=== PATIENT | female | born 1955 | race Caucasian/White ===

== ENCOUNTER → 2019-01-05 | Outpatient (CLI) | payer OTHER ==
[~2019-01-05] MED LIST: CALC1CAP8 PO; CITA20TA6 PO; LOSA100T14 PO; OMEP20TA62 PO; OXYB5TAB7 PO; PRILOSEC PO; PROP80TA PO
[2019-01-05 11:34] LABS: BASOPHILS # (AUTO) 0.09 x10^3/uL (0-0.1); BASOPHILS % (AUTO) 1 % (0-1); EOSINOPHILS # (AUTO) 0.14 x10^3/uL (0-0.4); EOSINOPHILS % (AUTO) 2 % (1-7); LYMPHOCYTES # (AUTO) 2.94 x10^3/uL (1-3.4); LYMPHOCYTES % (AUTO) 32 % (22-44); MD NO; MEAN CORPUSCULAR HEMOGLOBIN 28.3 pg (27.0-34.8); MEAN CORPUSCULAR HGB CONC 33.7 g/dL (32.4-35.8); MEAN CORPUSCULAR VOLUME 84.1 fL (80-100); MEAN PLATELET VOLUME 8.4 fL (7.4-10.4); MONOCYTES # (AUTO) 0.64 x10^3/uL (0.2-0.8); MONOCYTES % (AUTO) 7 % (2-9); NEUTROPHILS # (AUTO) 5.44 x10^3/uL (1.8-6.8); NEUTROPHILS % (AUTO) 59 % (42-75); PLATELET COUNT 334 x10^3/uL (130-400); RED BLOOD COUNT 5.21 x10^6/uL (3.82-5.3); RED CELL DISTRIBUTION WIDTH 14.2 % (9.6-15.2)
[2019-01-05 11:35] LABS: ALBUMIN 3.7 g/dL (3.4-5.0); ANION GAP 6 mmol/L (5-15); CALCIUM 8.8 mg/dL (8.5-10.1); CHLORIDE 107 mmol/L (98-107)
[2019-01-05 11:39] LABS: ALANINE AMINOTRANSFERASE 23 U/L (12-78); ALKALINE PHOSPHATASE 81 U/L (45-117); BILIRUBIN,TOTAL 0.5 mg/dL (0.2-1.0); CREATININE 0.78 mg/dL (0.55-1.02); TOTAL PROTEIN 7.1 g/dL (6.4-8.2)
== END | disposition home or self-care (01) ==
LOC: STAR 10:10
PROVIDERS: ATTEND Surgery
DX: Z01.818 Encounter for other preprocedural examination (principal); I45.10 Unspecified right bundle-branch block
CPT/HCPCS: 36415; 71046; 80053; 85025; 93005

== ENCOUNTER 2019-01-12 09:38 | Inpatient (IN) | payer OTHER ==
[~2019-01-12] VITALS: Ht 167.6 cm; Wt 108.2 kg
[~2019-01-12 09:38] MED LIST changes: +BUPIVACAINE/PF 0.5% ONE
[2019-01-12] MEDS ORDERED: LACTATED RINGERS 1,000 ML IV SCH (10:04)
[2019-01-12] MEDS ORDERED: GABAPENTIN 300 MG CAPSULE PO ONE (10:30)
[2019-01-12] MEDS ORDERED: ACETAMINOPHEN 500 MG TABLET PO ONE (10:30)
[2019-01-12] MEDS ORDERED: MIDAZOLAM 1 MG/ML, 2ML ONE (11:12)
[2019-01-12] MEDS ORDERED: FENTANYL PF 250 MCG/5ML ONE (11:12)
[2019-01-12] MEDS ORDERED: CEFOTETAN 2 GM ONE (12:12)
[2019-01-12] MEDS ORDERED: DEXAMETHASONE 4 MG/ML, 1ML ONE (12:33)
[2019-01-12] MEDS ORDERED: PROMETHAZINE 25 MG/ML, 1ML IV PRN (13:00)
[2019-01-12] MEDS ORDERED: hydrALAzine 20 MG/ML, 1ML IV PRN ×2 (13:00→14:30)
[2019-01-12] MEDS ORDERED: FENTANYL PF 100 MCG/2ML IV PRN (13:00)
[2019-01-12] MEDS ORDERED: OXYcodone 5 MG/5 ML ORAL.SOL UDC PO PRN (13:00)
[2019-01-12] MEDS ORDERED: ONDANSETRON 2MG/ML, 2ML IV PRN (13:00)
[2019-01-12] MEDS ORDERED: LABETALOL 5MG/ML, 20ML IV PRN (13:00)
[2019-01-12] MEDS ORDERED: MEPERIDINE/PF 25MG/0.5ML IVPush PRN (13:00)
[2019-01-12] MEDS ORDERED: ONDANSETRON 2MG/ML, 2ML ONE (13:42)
[2019-01-12] MEDS ORDERED: NEOSTIGMINE 1 MG/ML, 10ML ONE (13:43)
[2019-01-12] MEDS ORDERED: GLYCOPYRROLATE 0.4 MG/2 ML, 2ML ONE (13:43)
[2019-01-12] MEDS ORDERED: PROPOFOL 10 MG/ML, 20ML ONE (13:43)
[2019-01-12] MEDS ORDERED: ROCURONIUM 10MG/ML,5ML ONE (13:43)
[2019-01-12] MEDS ORDERED: HYDROmorphone 2 MG/ML, 1ML ONE (14:21)
[2019-01-12] MEDS ORDERED: OXYcodone 5 MG/5 ML ORAL.SOL UDC ONE (14:21)
[2019-01-12] MEDS: HYDROmorphone 2 MG/ML, 1ML IVPush PRN ×4 (14:25→14:52)
[2019-01-12] MEDS ORDERED: DEXAMETHASONE 4 MG/ML, 1ML IVPush PRN (14:30)
[2019-01-12] MEDS ORDERED: DIPHENHYDRAMINE 25 MG CAPSULE PO PRN (14:30)
[2019-01-12] MEDS ORDERED: HYDROmorphone 1 MG/ML, 1ML INJ IVPush PRN (14:30)
[2019-01-12] MEDS: ENOXAPARIN 40 MG/0.4 ML SQ SCH (14:30)
[2019-01-12] MEDS ORDERED: SCOPOLAMINE PATCH, 1.5MG PATCH.TD72 TD PRN (14:30)
[2019-01-12] MEDS ORDERED: LORazepam 2 MG/ML, 1ML IVPush PRN (14:30)
[2019-01-12] MEDS ORDERED: ONDANSETRON 2MG/ML, 2ML IVPush PRN (14:30)
[2019-01-12] MEDS ORDERED: HALOPERIDOL 5 MG/ML IVPush PRN (14:30)
[2019-01-12] MEDS: ACETAMINOPHEN 100 ML IVPB SCH ×2 (14:30→22:04)
[2019-01-12] MEDS ORDERED: DIPHENHYDRAMINE 50 MG/ML, 1ML IVPush PRN (14:30)
[2019-01-12] MEDS ORDERED: EPHEDRINE 50 MG/ML, 1ML IM ONE (16:00)
[2019-01-12] MEDS ORDERED: EPHEDRINE 50 MG/ML, 1ML IVPush PRN (16:00)
[2019-01-12] MEDS ORDERED: EPHEDRINE 50 MG/ML, 1ML ONE (16:01)
[2019-01-12] MEDS ORDERED: D5%-0.45NACL+KCL 20MEQ 1,000 ML IV SCH (16:30)
[2019-01-12] MEDS: IBUPROFEN 800 MG TABLET PO SCH ×2 (17:37→20:33)
[2019-01-12 21:31] VITALS: BP 91/53
[2019-01-13 00:10] VITALS: BP 99/54
[2019-01-13] MEDS: ACETAMINOPHEN 100 ML IVPB SCH ×2 (02:21→07:58)
[2019-01-13 03:37] LABS: BASOPHILS # (AUTO) 0.04 x10^3/uL (0-0.1); BASOPHILS % (AUTO) 0 % (0-1); EOSINOPHILS % (AUTO) 0 % (1-7); LYMPHOCYTES # (AUTO) 1.24 x10^3/uL (1-3.4); LYMPHOCYTES % (AUTO) 10 % (22-44); MD NO; MEAN CORPUSCULAR HEMOGLOBIN 28.3 pg (27.0-34.8); MEAN CORPUSCULAR HGB CONC 33.6 g/dL (32.4-35.8); MEAN CORPUSCULAR VOLUME 84.2 fL (80-100); MEAN PLATELET VOLUME 8.2 fL (7.4-10.4); MONOCYTES # (AUTO) 0.99 x10^3/uL (0.2-0.8); MONOCYTES % (AUTO) 8 % (2-9); NEUTROPHILS # (AUTO) 10.11 x10^3/uL (1.8-6.8); NEUTROPHILS % (AUTO) 82 % (42-75); PLATELET COUNT 270 x10^3/uL (130-400); RED BLOOD COUNT 4.36 x10^6/uL (3.82-5.3)
[2019-01-13 03:46] LABS: ANION GAP 6 mmol/L (5-15); CALCIUM 8.2 mg/dL (8.5-10.1); CHLORIDE 104 mmol/L (98-107); CREATININE 1.08 mg/dL (0.55-1.02)
[2019-01-13] MEDS: OXYcodone IR 5MG TABLET PO PRN ×3 (04:36→21:30)
[2019-01-13 04:40] VITALS: BP 104/56
[2019-01-13] MEDS: IBUPROFEN 800 MG TABLET PO SCH ×3 (07:58→21:30)
[2019-01-13 08:23] VITALS: BP 99/51
[2019-01-13 09:27] VITALS: BP 99/51
[2019-01-13 13:34] VITALS: BP 99/53
[2019-01-13] MEDS: ENOXAPARIN 40 MG/0.4 ML SQ SCH (14:24)
[2019-01-13 19:52] VITALS: BP 115/61
[2019-01-14] MEDS: CALCIUM CARBONATE 500 MG TAB.CHEW PO PRN (02:39)
[2019-01-14 02:53] VITALS: BP 120/67
[2019-01-14 07:02] LABS: MEAN CORPUSCULAR HEMOGLOBIN 27.5 pg (27.0-34.8); MEAN CORPUSCULAR HGB CONC 32.6 g/dL (32.4-35.8); MEAN CORPUSCULAR VOLUME 84.2 fL (80-100); MEAN PLATELET VOLUME 8.4 fL (7.4-10.4); PLATELET COUNT 283 x10^3/uL (130-400); RED BLOOD COUNT 4.89 x10^6/uL (3.82-5.3); RED CELL DISTRIBUTION WIDTH 14.7 % (9.6-15.2)
[2019-01-14 07:15] LABS: CHLORIDE 110 mmol/L (98-107)
[2019-01-14 07:22] LABS: BASOPHILS # (AUTO) 0.04 x10^3/uL (0-0.1); BASOPHILS % (AUTO) 0 % (0-1); EOSINOPHILS # (AUTO) 0.14 x10^3/uL (0-0.4); EOSINOPHILS % (AUTO) 1 % (1-7); LYMPHOCYTES # (AUTO) 2.17 x10^3/uL (1-3.4); LYMPHOCYTES % (AUTO) 15 % (22-44); MD SCAN; MONOCYTES # (AUTO) 0.81 x10^3/uL (0.2-0.8); MONOCYTES % (AUTO) 6 % (2-9); NEUTROPHILS # (AUTO) 11.23 x10^3/uL (1.8-6.8); NEUTROPHILS % (AUTO) 78 % (42-75)
[2019-01-14 07:23] LABS: ANION GAP 6 mmol/L (5-15); CREATININE 0.76 mg/dL (0.55-1.02)
[2019-01-14] MEDS: OXYcodone IR 5MG TABLET PO PRN ×3 (07:23→20:33)
[2019-01-14] MEDS: METOCLOPRAMIDE 5 MG/ML, 2ML IVPush SCH ×3 (07:23→20:32)
[2019-01-14 08:31] VITALS: BP 111/75
[2019-01-14] MEDS: IBUPROFEN 800 MG TABLET PO SCH ×3 (09:05→20:33)
[2019-01-14 15:57] VITALS: BP 100/69
[2019-01-14] MEDS: ENOXAPARIN 40 MG/0.4 ML SQ SCH (16:27)
[2019-01-14 20:48] VITALS: BP 94/57
[2019-01-14] MEDS: D5%-0.45NACL+KCL 20MEQ 1,000 ML IV SCH (22:25)
[2019-01-15] MEDS: OXYcodone IR 5MG TABLET PO PRN ×6 (01:23→22:05)
[2019-01-15 02:14] VITALS: BP 99/65
[2019-01-15] MEDS: METOCLOPRAMIDE 5 MG/ML, 2ML IVPush SCH ×4 (03:42→21:38)
[2019-01-15 04:37] LABS: ANION GAP 8 mmol/L (5-15); CALCIUM 8.1 mg/dL (8.5-10.1); CHLORIDE 105 mmol/L (98-107); MEAN CORPUSCULAR HEMOGLOBIN 28.2 pg (27.0-34.8); MEAN CORPUSCULAR HGB CONC 33.1 g/dL (32.4-35.8); MEAN CORPUSCULAR VOLUME 85.2 fL (80-100); MEAN PLATELET VOLUME 8.7 fL (7.4-10.4); PLATELET COUNT 231 x10^3/uL (130-400); RED BLOOD COUNT 4.76 x10^6/uL (3.82-5.3); RED CELL DISTRIBUTION WIDTH 14.5 % (9.6-15.2)
[2019-01-15 04:51] LABS: CREATININE 0.97 mg/dL (0.55-1.02)
[2019-01-15 05:19] LABS: BASOPHILS # (AUTO) 0.02 x10^3/uL (0-0.1); BASOPHILS % (AUTO) 0 % (0-1); EOSINOPHILS # (AUTO) 0.05 x10^3/uL (0-0.4); EOSINOPHILS % (AUTO) 0 % (1-7); LYMPHOCYTES # (AUTO) 0.83 x10^3/uL (1-3.4); LYMPHOCYTES % (AUTO) 7 % (22-44); MD SCAN; MONOCYTES # (AUTO) 0.57 x10^3/uL (0.2-0.8); MONOCYTES % (AUTO) 5 % (2-9); NEUTROPHILS # (AUTO) 9.96 x10^3/uL (1.8-6.8); NEUTROPHILS % (AUTO) 87 % (42-75)
[2019-01-15 08:15] VITALS: BP 99/55
[2019-01-15] MEDS: D5%-0.45NACL+KCL 20MEQ 1,000 ML IV SCH ×2 (09:19→23:00)
[2019-01-15] MEDS: IBUPROFEN 800 MG TABLET PO SCH ×3 (09:19→21:38)
[2019-01-15] MEDS: CALCIUM CARBONATE 500 MG TAB.CHEW PO PRN ×4 (13:24→21:38)
[2019-01-15 14:25] VITALS: BP 87/56
[2019-01-15] MEDS: ENOXAPARIN 40 MG/0.4 ML SQ SCH (15:16)
[2019-01-15 21:47] VITALS: BP 97/56
[2019-01-16 01:38] VITALS: BP 91/60
[2019-01-16] MEDS: CALCIUM CARBONATE 500 MG TAB.CHEW PO PRN ×5 (01:45→19:13)
[2019-01-16] MEDS: OXYcodone IR 5MG TABLET PO PRN ×4 (05:15→19:13)
[2019-01-16] MEDS: METOCLOPRAMIDE 5 MG/ML, 2ML IVPush SCH ×4 (05:16→23:21)
[2019-01-16 07:40] LABS: MEAN CORPUSCULAR HEMOGLOBIN 27.5 pg (27.0-34.8); MEAN CORPUSCULAR HGB CONC 32.3 g/dL (32.4-35.8); MEAN CORPUSCULAR VOLUME 85.1 fL (80-100); MEAN PLATELET VOLUME 8.6 fL (7.4-10.4); PLATELET COUNT 280 x10^3/uL (130-400); RED BLOOD COUNT 4.62 x10^6/uL (3.82-5.3); RED CELL DISTRIBUTION WIDTH 14.4 % (9.6-15.2)
[2019-01-16 07:45] LABS: ANION GAP 5 mmol/L (5-15); CALCIUM 8.7 mg/dL (8.5-10.1); CHLORIDE 106 mmol/L (98-107); CREATININE 1.54 mg/dL (0.55-1.02)
[2019-01-16 07:58] LABS: BASOPHILS # (AUTO) 0.02 x10^3/uL (0-0.1); BASOPHILS % (AUTO) 0 % (0-1); EOSINOPHILS # (AUTO) 0.28 x10^3/uL (0-0.4); EOSINOPHILS % (AUTO) 2 % (1-7); LYMPHOCYTES # (AUTO) 0.91 x10^3/uL (1-3.4); LYMPHOCYTES % (AUTO) 8 % (22-44); MD SCAN; MONOCYTES # (AUTO) 0.76 x10^3/uL (0.2-0.8); MONOCYTES % (AUTO) 7 % (2-9); NEUTROPHILS # (AUTO) 9.57 x10^3/uL (1.8-6.8); NEUTROPHILS % (AUTO) 83 % (42-75)
[2019-01-16 08:01] LABS: C-REACTIVE PROTEIN, QUANT > 19.00 mg/dL (0.02-0.49)
[2019-01-16] MEDS: IBUPROFEN 800 MG TABLET PO SCH ×3 (09:25→20:51)
[2019-01-16] MEDS: SODIUM CHLORIDE 0.9% 1,000 ML IV SCH ×3 (09:25→20:51)
[2019-01-16 09:30] VITALS: BP 98/64
[2019-01-16] MEDS: D5%-0.45NACL+KCL 20MEQ 1,000 ML IV SCH ×2 (13:00→23:00)
[2019-01-16] MEDS ORDERED: OMNIPAQUE 350 MG/ML, 100ML BOTTLE ONE (13:13)
[2019-01-16 14:06] VITALS: BP 99/62
[2019-01-16] MEDS: ENOXAPARIN 40 MG/0.4 ML SQ SCH (17:41)
[2019-01-16 19:49] LABS: BASOPHILS # (AUTO) 0.02 x10^3/uL (0-0.1); BASOPHILS % (AUTO) 0 % (0-1); EOSINOPHILS % (AUTO) 3 % (1-7); LYMPHOCYTES # (AUTO) 1.19 x10^3/uL (1-3.4); LYMPHOCYTES % (AUTO) 10 % (22-44); MD NO; MEAN CORPUSCULAR HGB CONC 33.2 g/dL (32.4-35.8); MEAN CORPUSCULAR VOLUME 84.2 fL (80-100); MEAN PLATELET VOLUME 8.9 fL (7.4-10.4); MONOCYTES # (AUTO) 0.69 x10^3/uL (0.2-0.8); MONOCYTES % (AUTO) 6 % (2-9); NEUTROPHILS # (AUTO) 9.85 x10^3/uL (1.8-6.8); NEUTROPHILS % (AUTO) 82 % (42-75); PLATELET COUNT 306 x10^3/uL (130-400); RED CELL DISTRIBUTION WIDTH 14.2 % (9.6-15.2)
[2019-01-16 20:00] LABS: ANION GAP 8 mmol/L (5-15); CALCIUM 8.9 mg/dL (8.5-10.1); CHLORIDE 106 mmol/L (98-107); CREATININE 1.48 mg/dL (0.55-1.02)
[2019-01-16 20:22] LABS: C-REACTIVE PROTEIN, QUANT > 19.00 mg/dL (0.02-0.49)
[2019-01-16 20:24] VITALS: BP 103/66
[2019-01-17] MEDS: SODIUM CHLORIDE 0.9% 1,000 ML IV SCH ×5 (01:00→18:14)
[2019-01-17 01:52] VITALS: BP_SYST 100; BP_SYST 123; BP_DIAS 62; BP_DIAS 75
[2019-01-17] MEDS: METOCLOPRAMIDE 5 MG/ML, 2ML IVPush SCH ×4 (05:03→23:42)
[2019-01-17] MEDS: OXYcodone IR 5MG TABLET PO PRN ×3 (05:13→21:14)
[2019-01-17 07:39] VITALS: BP 100/66
[2019-01-17] MEDS: D5%-0.45NACL+KCL 20MEQ 1,000 ML IV SCH ×2 (08:23→21:00)
[2019-01-17] MEDS: IBUPROFEN 800 MG TABLET PO SCH (08:23)
[2019-01-17 08:52] LABS: ALBUMIN 2.2 g/dL (3.4-5.0)
[2019-01-17 08:56] LABS: BILIRUBIN, DIRECT 0.1 mg/dL (0.1-0.2); BILIRUBIN,INDIRECT 0.1 mg/dL (0.0-2.0); BILIRUBIN,TOTAL 0.2 mg/dL (0.2-1.0)
[2019-01-17 13:17] VITALS: BP 116/65
[2019-01-17] MEDS: ENOXAPARIN 40 MG/0.4 ML SQ SCH (17:06)
[2019-01-17 19:45] VITALS: BP 118/70
[2019-01-18 00:58] VITALS: BP 115/72
[2019-01-18 04:25] LABS: BASOPHILS # (AUTO) 0.01 x10^3/uL (0-0.1); BASOPHILS % (AUTO) 0 % (0-1); EOSINOPHILS # (AUTO) 0.23 x10^3/uL (0-0.4); EOSINOPHILS % (AUTO) 3 % (1-7); LYMPHOCYTES # (AUTO) 0.88 x10^3/uL (1-3.4); LYMPHOCYTES % (AUTO) 11 % (22-44); MD NO; MEAN CORPUSCULAR HEMOGLOBIN 28.2 pg (27.0-34.8); MEAN CORPUSCULAR HGB CONC 33.8 g/dL (32.4-35.8); MEAN CORPUSCULAR VOLUME 83.4 fL (80-100); MEAN PLATELET VOLUME 8.4 fL (7.4-10.4); MONOCYTES # (AUTO) 0.82 x10^3/uL (0.2-0.8); MONOCYTES % (AUTO) 10 % (2-9); NEUTROPHILS # (AUTO) 6.13 x10^3/uL (1.8-6.8); NEUTROPHILS % (AUTO) 76 % (42-75); PLATELET COUNT 278 x10^3/uL (130-400); RED BLOOD COUNT 4.02 x10^6/uL (3.82-5.3); RED CELL DISTRIBUTION WIDTH 14.4 % (9.6-15.2)
[2019-01-18 04:26] LABS: ANION GAP 6 mmol/L (5-15); CALCIUM 7.9 mg/dL (8.5-10.1); CHLORIDE 110 mmol/L (98-107); CREATININE 1.13 mg/dL (0.55-1.02)
[2019-01-18] MEDS: SODIUM CHLORIDE 0.9% 1,000 ML IV SCH ×6 (05:37→21:30)
[2019-01-18] MEDS: D5%-0.45NACL+KCL 20MEQ 1,000 ML IV SCH ×2 (05:37→16:42)
[2019-01-18] MEDS: METOCLOPRAMIDE 5 MG/ML, 2ML IVPush SCH ×4 (05:37→23:28)
[2019-01-18] MEDS: OXYcodone IR 5MG TABLET PO PRN (08:00)
[2019-01-18 08:45] VITALS: BP 126/72
[2019-01-18 14:17] VITALS: BP 132/79
[2019-01-18] MEDS: ENOXAPARIN 40 MG/0.4 ML SQ SCH (16:42)
[2019-01-18 18:41] VITALS: BP 113/72
[2019-01-19] MEDS: SODIUM CHLORIDE 0.9% 1,000 ML IV SCH ×3 (01:30→09:30)
[2019-01-19] MEDS: D5%-0.45NACL+KCL 20MEQ 1,000 ML IV SCH (01:56)
[2019-01-19 02:09] VITALS: BP 122/74
[2019-01-19] MEDS: METOCLOPRAMIDE 5 MG/ML, 2ML IVPush SCH ×2 (05:08→11:50)
[2019-01-19 05:13] LABS: MEAN CORPUSCULAR HEMOGLOBIN 27.4 pg (27.0-34.8); MEAN CORPUSCULAR HGB CONC 32.6 g/dL (32.4-35.8); MEAN CORPUSCULAR VOLUME 84.1 fL (80-100); MEAN PLATELET VOLUME 8.7 fL (7.4-10.4); PLATELET COUNT 302 x10^3/uL (130-400); RED BLOOD COUNT 4.16 x10^6/uL (3.82-5.3); RED CELL DISTRIBUTION WIDTH 14.8 % (9.6-15.2)
[2019-01-19 05:23] LABS: CHLORIDE 107 mmol/L (98-107)
[2019-01-19 05:37] LABS: ANION GAP 10 mmol/L (5-15); CALCIUM 8.2 mg/dL (8.5-10.1); CREATININE 0.85 mg/dL (0.55-1.02)
[2019-01-19 06:07] LABS: MD YES
[2019-01-19 06:09] LABS: BAND#(MANUAL) 0.16 x10^3/uL; BANDS%(MANUAL) 2 % (0-7); EOS#(MANUAL) 0.33 x10^3/uL (0.0-0.4); EOS% (MANUAL) 4 % (1-7); LYMPH#(MANUAL) 1.15 x10^3/uL (1-3.4); LYMPHS% (MANUAL) 14 % (22-44); MONOS#(MANUAL) 0.82 x10^3/uL (0.3-2.7); MONOS% (MANUAL) 10 % (2-9); MYELOCYTES# (MANUAL) 0.16 x10^3/uL (0-0); MYELOCYTES% (MANUAL) 2 % (0-0); SEG#(MANUAL) 5.58 x10^3/uL (1.8-6.8); SEGS% (MANUAL) 68 % (42-75)
[2019-01-19 06:10] LABS: <PLATELET ESTIMATE> ADEQUATE; <PLT MORPHOLOGY> NORMAL PLT MORPH; <RBC MORPHOLOGY> NORMAL
[2019-01-19 06:20] LABS: BASOPHILS # (AUTO) 0.01 x10^3/uL (0-0.1); BASOPHILS % (AUTO) 0 % (0-1); EOSINOPHILS # (AUTO) 0.19 x10^3/uL (0-0.4); EOSINOPHILS % (AUTO) 2 % (1-7); LYMPHOCYTES # (AUTO) 1.26 x10^3/uL (1-3.4); LYMPHOCYTES % (AUTO) 15 % (22-44); MONOCYTES # (AUTO) 0.97 x10^3/uL (0.2-0.8); MONOCYTES % (AUTO) 12 % (2-9); NEUTROPHILS # (AUTO) 5.77 x10^3/uL (1.8-6.8); NEUTROPHILS % (AUTO) 70 % (42-75)
[2019-01-19 07:45] VITALS: BP 131/78
[2019-01-19] MEDS: OXYcodone IR 5MG TABLET PO PRN (11:50)
[2019-01-19] MEDS ORDERED: OXYC-302 PO (12:31)
[2019-01-19 12:32] VITALS: BP 130/78
[2019-01-19] MEDS ORDERED: IBUP-1223 PO (12:52)
[2019-01-19] MEDS ORDERED: CALC400T6 PO (12:53)
== END 2019-01-19 13:09 | disposition home or self-care (01) | DRG 331 ==
LOC: ORIP 09:38 → EDSTATUS 13:00 → 4NOR 17:04 → DCLOUNGE 01-19 12:44
PROVIDERS: ADMIT Surgery; ATTEND Surgery
PROC: 0DBU4ZZ Excision of Omentum, Percutaneous Endoscopic Approach (ICD-10-PCS; 2019-01-12)
PROC: 3E0T3BZ Introduction of Anesthetic Agent into Peripheral Nerves and Plexi, Percutaneous Approach (ICD-10-PCS; 2019-01-12)
PROC: 0DBL4ZZ Excision of Transverse Colon, Percutaneous Endoscopic Approach (ICD-10-PCS; principal; 2019-01-12 12:00)
DX: D37.4 Neoplasm of uncertain behavior of colon (principal); K63.5 Polyp of colon; I10 Essential (primary) hypertension; E66.9 Obesity, unspecified; K21.9 Gastro-esophageal reflux disease without esophagitis; F41.9 Anxiety disorder, unspecified; Z90.49 Acquired absence of other specified parts of digestive tract; Z90.710 Acquired absence of both cervix and uterus; Z90.89 Acquired absence of other organs; Z80.8 Family history of malignant neoplasm of other organs or systems; Z68.38 Body mass index [BMI] 38.0-38.9, adult
CPT/HCPCS: 36415; J3490; 74177; 80048; 80076; 82150; 83690; 85025; 86140; 86850; 86900; 88307; 88309; G0378; J0131; J1100; J1170; J1650; J2250; J2405; J2704; J2710; J3010; Q9967; J2765; J3480; J7030; J7120